=== PATIENT | female | born 1960 | race Caucasian/White ===

== ENCOUNTER 2021-11-19 09:43 | Day surgery (SDC) | payer OTHER ==
[~2021-11-19] VITALS: Ht 160 cm; Wt 49.0 kg
[~2021-11-19 09:43] MED LIST: ALBU90OI6 INH; ASPI81CH PO; ATEN25 PO; ATOR40TA PO; CODGUAEL PO; ESTR2 PO; HYDCHL25 PO; HYDR-86 PO; IBUP800 PO; LEVO750 PO; NICO21TP; OMEP20ER; OMEP20ER PO; OXYACE5T PO; PANTOPRAZOLE SO40 M2 PO; Prozac20 MG PO; Prozac40 MG PO; ROBITUSSIN COU118 ML PO; TIOT18; TRAM50 PO; ZOLPIDEM TARTRA10 MG PO
--- NOTE | 2021-11-19 13:35 | NUR ---
PT ATTEMPTED TO RELEASE AIR FROM TR BAND, IT BLED. TR BAND REINFLATED. NO BLEEDING OR HEMATOMA NOTED. WILL CONTINUE TO MONITOR PATIENT. VSS.
--- NOTE | 2021-11-19 14:25 | NUR ---
PT TR BAND FULLY DEFLATED. NO BLEEDING OR HEMATOMA NOTED. VSS. NADN. PT VERBALIZES UNDERSTANDING WRITTEN AND VERBAL INSTRUCTIONS
--- NOTE | 2021-11-19 15:00 | NUR ---
PT TR BAND REMOVED. DOT DRESSING APPLIED WITH SPLINT. TOLERATES WELL. VSS. PT IV DC'D. CATH INTACT. PRESSURE DSG APPLIED. PT DRESSES SELF WITHOUT DIFF. PT DC TO HOME VIA WC BY FRIEND
== END 2021-11-19 15:10 | disposition home or self-care (01) ==
LOC: MHTC 09:43
DX: I77.1 Stricture of artery (principal); I70.213 Atherosclerosis of native arteries of extremities with intermittent claudication, bilateral legs; Z86.73 Personal history of transient ischemic attack (TIA), and cerebral infarction without residual deficits; Z87.891 Personal history of nicotine dependence; Z88.8 Allergy status to other drugs, medicaments and biological substances; Z91.030 Bee allergy status; K21.9 Gastro-esophageal reflux disease without esophagitis
CPT/HCPCS: 37236; 75710; 76937; 99152; 99153; C1725; C1876; C1887; C1894; J1644; J2250; J3010; J7030; J7040; J7050; Q9967

== ENCOUNTER 2022-08-03 19:37 | Emergency (ER) | payer OTHER ==
[~2022-08-03] VITALS: Ht 160 cm; Wt 49.4 kg
[~2022-08-03 19:37] MED LIST changes: +Cipro500 MG PO; +SPIRIVA RESPIMAT4 G3 INH
== END 2022-08-03 22:28 | disposition home or self-care (01) ==
LOC: ER 19:37
DX: Z76.0 Encounter for issue of repeat prescription (principal); G47.9 Sleep disorder, unspecified; K21.9 Gastro-esophageal reflux disease without esophagitis; I10 Essential (primary) hypertension; I25.10 Atherosclerotic heart disease of native coronary artery without angina pectoris; E78.5 Hyperlipidemia, unspecified; F17.200 Nicotine dependence, unspecified, uncomplicated; Z88.8 Allergy status to other drugs, medicaments and biological substances; Z79.82 Long term (current) use of aspirin; Z79.899 Other long term (current) drug therapy; Z86.73 Personal history of transient ischemic attack (TIA), and cerebral infarction without residual deficits
CPT/HCPCS: 99282; A9270

== ENCOUNTER 2024-06-22 01:29 | Observation (INO) | payer MEDICARE, OTHER ==
[~2024-06-22] VITALS: Ht 157.5 cm; Wt 49.6 kg
[2024-06-22] MEDS ORDERED: Metoclopramide HCl 5MG / ML 2ML Vial IV ONE (01:45)
[2024-06-22] MEDS ORDERED: FentaNYL Citrate 50 MCG/ML 2 ML Injection IV ONE (01:50)
[2024-06-22 02:13] LABS: Albumin, Blood 3.2 g/dL (3.4-5.0); Albumin/Globulin Ratio 0.9 (0.8-1.8); Bilirubin, Total 0.2 mg/dL (0.1-1.0); Bun/Creatinine Ratio 16.8 (12.0-20.0); Calcium, Blood 8.6 mg/dL (8.5-10.1); Creatinine, Blood 0.83 mg/dL (0.40-1.00); Globulin, Blood 3.4 g/dL (2.2-4.0); Potassium, Blood 3.8 mmol/L (3.5-5.5); Total Protein, Blood 6.6 g/dL (6.4-8.2)
[2024-06-22 02:23] LABS: BASOPHILS ABSOLUTE AUTO 0.04 K/mm3 (0.00-0.23); BASOPHILS PERCENT AUTO 1 % (0-2); EOSINOPHILS ABSOLUTE AUTO 0.02 K/mm3 (0.00-0.68); EOSINOPHILS PERCENT AUTO 0 % (0-6); Hematocrit 33.9 % (33.0-51.0); Hemoglobin 10.9 g/dL (11.5-16.0); IMMATURE GRAN ABSOLUTE AUTO 0.02 K/mm3 (0.00-0.10); IMMATURE GRAN PERCENT AUTO 0 % (0-1); LYMPHOCYTES ABSOLUTE AUTO 0.98 K/mm3 (0.84-5.20); LYMPHOCYTES PERCENT AUTO 20 % (21-46); MONOCYTES ABSOLUTE AUTO 0.31 K/mm3 (0.16-1.47); MONOCYTES PERCENT AUTO 6 % (4-13); Mean Corpuscular HGB 29.4 pg (26.0-34.0); Mean Corpuscular HGB Conc 32.2 g/dL (31.5-36.5); Mean Corpuscular Volume 91 fL (80-100); Mean Platelet Volume 10.7 fL (9.1-12.4); NEUTROPHILS ABSOLUTE AUTO 3.51 K/mm3 (1.96-9.15); NEUTROPHILS PERCENT AUTO 72 % (41-73); Platelet Count 200 K/mm3 (150-400); RDW Coefficient Variation 16.2 % (11.7-14.2); RDW Standard Deviation 54.8 fL (35.1-46.3); Red Blood Cell Count 3.71 M/mm3 (3.80-5.20); White Blood Cell Count 4.88 K/mm3 (4.00-11.30)
[2024-06-22] MEDS ORDERED: Ondansetron HCl 2 MG / ML 2ML Vial IV ONE (02:50)
[2024-06-22] MEDS ORDERED: HYDROmorphone HCl/Pf 1MG SYR IV ONE (03:05)
[2024-06-22 04:06] LABS: Source, Urine Clean Catch
[2024-06-22 04:13] LABS: Bilirubin, Urine Neg (Neg); Blood, Urine Neg (Neg); Glucose Qualitative, Urine Neg (Neg); Ketones, Urine 1+ (Neg); Leukocyte Esterase, Urine Neg (Neg); Nitrite, Urine Neg (Neg); Protein, Urine Neg (Neg); Urobilinogen, Urine NORM (Normal)
[2024-06-22 04:14] LABS: Appearance, Urine Clear (Clear); Color, Urine Yellow (P-Yellow)
[2024-06-22 04:26] LABS: U Amphetamine Screen Not Detected; U Barbituate Screen Not Detected; U Benzodiazapine Screen Not Detected; U Methamphetamine Screen Not Detected
[2024-06-22 04:27] LABS: U Buprenorphine Screen Not Detected; U Cannabinoids Screen Not Detected; U Cocaine Screen Not Detected; U Methadone Screen Not Detected; U Opiates Screen Not Detected; U Oxycodone Screen Not Detected; U Phencyclidine Screen Not Detected
[2024-06-22] MEDS ORDERED: HydrALAZINE HCl 20 MG / ML 1ML Vial IV PRN (04:40)
[2024-06-22] MEDS ORDERED: TraMADol HCl 50 MG Tab PO PRN (04:45)
[2024-06-22] MEDS ORDERED: Acetaminophen 325 MG TABLET PO PRN (04:45)
[2024-06-22] MEDS ORDERED: FentaNYL Citrate 50 MCG/ML 2 ML Injection IV PRN (04:45)
[2024-06-22] MEDS ORDERED: NS 1,000 ML IV SCH ×2 (05:00→08:40)
[2024-06-22 05:24] LABS: Anti-Xa UFH, PHA Monitoring <0.10 IU/mL; International Normalized Ratio 0.89; Prothrombin Time Results 9.6 Sec (9.7-11.5)
[2024-06-22] MEDS ORDERED: Heparin Sodium,Porcine/0.5 NS 500 ML IV SCH (05:35)
[2024-06-22] MEDS ORDERED: LISI10 PO (06:19)
[2024-06-22] MEDS ORDERED: ZOLP10 PO (06:19)
--- NOTE | 2024-06-22 06:55 | NUR ---
ARRIVAL TO UNIT PT ARRIVED TO UNIT VIA GURNEY, ABLE TO TRANSFER TO BED WITH ASST. PT NAUSEUOS WHEN UP AND MOVING. PT HAS NO SKIN ISSUES. TELE PLACED. PT A&O X3-4, FORGETFUL AT TIMES. DENIES ANY CP AT THIS TIME. HEPARIN STARTED THIS AM. VSS. NO OTHER CONCERNS AT THIS TIME, CALL LIGHT WITHIN REACH
[2024-06-22 07:30] VITALS: BP 124/85
[2024-06-22] MEDS ORDERED: Ondansetron HCl 2 MG / ML 2ML Vial IV PRN (07:50)
[2024-06-22 07:51] VITALS: BP 133/64
[2024-06-22 08:22] LABS: Hemoglobin 11.8 g/dL (11.5-16.0); Mean Corpuscular HGB 29.2 pg (26.0-34.0); Mean Corpuscular HGB Conc 32.8 g/dL (31.5-36.5); Mean Corpuscular Volume 89 fL (80-100); Mean Platelet Volume 10.3 fL (9.1-12.4); Platelet Count 192 K/mm3 (150-400); RDW Coefficient Variation 16.1 % (11.7-14.2); Red Blood Cell Count 4.04 M/mm3 (3.80-5.20)
[2024-06-22] MEDS ORDERED: Aspirin 81 MG Chew PO SCH (09:00)
[2024-06-22] MEDS ORDERED: Lisinopril 10 MG Tab PO SCH (09:00)
[2024-06-22] MEDS ORDERED: Cyclobenzaprine HCl 10 MG Tab PO PRN (10:45)
[2024-06-22 10:59] VITALS: BP 164/81
[2024-06-22] MEDS ORDERED: Metoprolol Succinate 50 MG TABCR PO SCH (16:00)
[2024-06-22 16:11] VITALS: BP 112/56
--- NOTE | 2024-06-22 18:20 | NUR ---
SHIFT SUMMARY AT START OF SHIFT CONTACTED DR. MENEZES TO GET HOME MEDS REORDERED, SOMETHING FOR PT NAUSEA AND A MEDICATION FOR PT STATED LEG CRAMPING. PT DENIED CHEST P/P THROUGHT THIS SHIFT. PT MEDICATED PER EMAR AND REPORTS THAT THE TRAMADOL AND FLEXERIL COMBO HAS HELPED HER LEG CRAMPING. PER DR. DIOR NO ANGIOGRAM OR STRESS TEST AT THIS TIME, WILL DISCUSS CARE PLAN FUTHER TOMMOROW. PT RESTING IN BED WITH UNLABORED RESPIRATIONS, REPORTING SHE IS FEELING BETTER, CALL LIGHT IN REACH, BED LOWEST POSTION, WILL GIVE REPORT TO UNCOMING NURSE.
--- NOTE | 2024-06-22 18:32 | NUR ---
THIS RN ATTEMPTED TO CALL PT'S SON, NIKKO MENDOZA ( AFTER GETTING PERMISON FROM) PT, CALL DID NOT GO THROUGH ON TWO ATTEMPTS, PT NOTIFIED OF THIS.
[2024-06-22 20:07] VITALS: BP 135/68
[2024-06-22] MEDS ORDERED: Zolpidem Tartrate 10 MG Tab PO SCH (21:00)
[2024-06-22] MEDS ORDERED: Dose Adjust by Pharmacy XX STA (21:58)
[2024-06-22 23:43] VITALS: BP 113/47
[2024-06-23 03:54] VITALS: BP 106/49
[2024-06-23 04:31] LABS: Hematocrit 30.5 % (33.0-51.0); Hemoglobin 9.8 g/dL (11.5-16.0); Mean Platelet Volume 10.7 fL (9.1-12.4); Platelet Count 162 K/mm3 (150-400)
[2024-06-23] MEDS ORDERED: Clarify Drug Order XX ONE (05:00)
[2024-06-23 08:37] VITALS: BP 109/47
[2024-06-23] MEDS ORDERED: Clopidogrel Bisulfate 300 MG Cap PO SCH (09:00)
--- NOTE | 2024-06-23 10:21 | NUR ---
AM NOTE this rn assumed care at 0700. vital signs stable. tele sinus rhythm 80s. patient is alert and oriented x4. neuro is intact. patient is able to make needs known and uses call light appropriately. patient reports pain in neck and back and received pain medication per emar per rn covering while this rn was on break. patient reports pain at 2 on reassessment by this rn, primary rn. see shift assessment for further detials. md meza okay'd patient to be discharged and to fly home. patient updated. rn urgent care chandra called md heller and discussed what derrick said. plan for patient to be discharged today.
[2024-06-23 11:07] VITALS: BP 122/58
[2024-06-23] MEDS ORDERED: CLOP75 PO (12:08)
[2024-06-23] MEDS ORDERED: TOPROL XL50 MG PO (12:08)
[2024-06-23] MEDS ORDERED: PANT20 PO (12:09)
--- NOTE | 2024-06-23 15:52 | NUR ---
discharge this rn went over discharge edcuation with the patient. this rn went over follow up appointment information with pcp and establishing barrel marker. [facility]. patient verbalized understanding. patient left with all belongings and in no distress.
== END 2024-06-23 15:25 | disposition home or self-care (01) ==
LOC: ER 01:29 → PCU 01:30 → ERHOLD 01:30 → PCU 05:53
PROVIDERS: Emergency Medicine; ADMIT Internal Medicine
DX: I21.4 Non-ST elevation (NSTEMI) myocardial infarction (principal); I16.0 Hypertensive urgency; I73.9 Peripheral vascular disease, unspecified; G25.81 Restless legs syndrome; I25.10 Atherosclerotic heart disease of native coronary artery without angina pectoris; K21.9 Gastro-esophageal reflux disease without esophagitis; E78.5 Hyperlipidemia, unspecified; F17.210 Nicotine dependence, cigarettes, uncomplicated; Z66 Do not resuscitate; Z86.73 Personal history of transient ischemic attack (TIA), and cerebral infarction without residual deficits; Z91.030 Bee allergy status; Z91.038 Other insect allergy status; Z88.8 Allergy status to other drugs, medicaments and biological substances; Z79.82 Long term (current) use of aspirin; Z95.828 Presence of other vascular implants and grafts
CPT/HCPCS: 36415; 71275; 74174; 80053; 81003; 83690; 84484; 85014; 85018; 85025; 85027; 85049; 85520; 85610; 85730; 93005; 93010; 93306; 94760; 96374-59; 96375; 96375-59; 96376; 99285-25; A9270; G0378; J0360; J1170; J1644; J2405; J2765; J3010; J7030; Q9967